=== PATIENT | male | born 1975 | race African-American/Black ===

== ENCOUNTER 2023-07-27 08:36 | Outpatient (CLI) | payer MEDICARE, MEDICAID, SELFPAY ==
[2023-08-13 15:32] VITALS: BMI 23.0
--- NOTE | 2023-08-13 15:32 | WPDSLEEPSTUD ---
Sleep Study Date of Study: 07/27/23 Ordering Provider: Mazin Brown, [employer] Interpreting Physician: Neela Mike, Sleep Study Type: Polysomnogram Height: 1.8 m Weight: 74.843 kg Body Mass Index: 23.0 Neck Circumference (inches): 16 [place]: 14 Reason for Sleep Study 04/27/2014; split night study at [facility]; severe KASSANDRA, AHI 50, desaturation to mid 80% range, titrated to 10 cm, recommended to use APAP 8-15 cm Previous compliance data shows poor mask fit and no daily usage above 4 hours. Sleep History The patient is a 48-year-old male with developmental delay, chronic kidney disease, hypertension and previously diagnosed severe sleep apnea that had a sleep study ordered by his program director/traffic director for evaluation of sleep apnea. the patient denies awakening from sleep short breath. He denies awakening at night with heartburn, belching or cough. He denies snoring. He denies having trouble sleeping when he has a cold. He constantly falls asleep during the day but never while driving. He constantly has trouble at school or work due to sleepiness. He denies feeling afraid of going to sleep. He denies having nightmares. He denies remembering his dreams. He denies having thoughts racing through his mind. He denies feeling sad, depressed or anxious. He denies having muscular tension. He denies noticing parts of his body jerk. He denies kicking during the night. He denies having crawling and aching feelings in his legs and denies having leg pain during the night. She denies grinding his teeth during sleep and denies awakening with morning jaw pain. He denies being bothered by pain during the day and denies being awakened by pain during the night. He constantly wakes up feeling stiff in the morning. He denies waking up with sore or achy muscles. He denies waking up with pain in the neck, spine and other joints. He goes to bed at 11:00 p.m. on both weekdays and weekends. He wakes up once throughout the night to urinate. He wakes up at 5:30 a.m. on both weekdays and weekends. He typically gets 6.5 hours of sleep per night. He will stay in bed for 1 hour after waking up in the morning. He currently lives in an assisted living facility with 16 there people. He denies consuming any caffeinated beverages within 2 hours of bedtime. He denies engaging in physical exercise before bedtime. He will read and watch television before falling asleep. He will take naps in the afternoon or the evening and they are refreshing. He denies consuming any caffeinated beverages throughout the day. He denies tobacco, alcohol and recreational drug use. PMFSH Past Medical History Medical History Chronic kidney disease Chronic rhinitis Hypertension Moderate intellectual disability Obstructive sleep apnea Social History Social History Smoking status: Never smoker Additional living arrangements comments: He lives in a custodial with 12 others at [facility]. During the day, he is a nailer hand at a restaurant, from 8 am - 2 pm. Occupation/Education: occupation Medications Home Medications Medication Instructions Recorded Confirmed Type bisacodyl 5 mg tablet,delayed 5 mg PO QHS 01/07/21 History release cetirizine 5 mg tablet 5 mg PO DAILY PRN 01/07/21 History fluticasone propionate 50 1 spray intranasal DAILY 01/07/21 History mcg/actuation nasal spray,suspension lisinopril 10 mg tablet 10 mg PO DAILY 01/07/21 History omega 9-pjo-sjz-fish oil 60 mg-90 1 cap PO DAILY 01/07/21 History mg-500 mg capsule (Fish Oil) polyethylene glycol 3350(bulk) ea miscellaneous 01/07/21 History (Base B, Polyethylene Glycol 3350 granules) Sleep Procedure A full night polysomnogram using the [employer] multi-channel system recorded the standard physiologic parameters including EEG
== END 2023-07-28 05:54 | disposition home or self-care (01) ==
LOC: ANHCSM 08:37
PROVIDERS: Visit Provider Nurse Practitioner Family
DX: R06.83 Snoring (principal); G47.30 Sleep apnea, unspecified
CPT/HCPCS: 95810